=== PATIENT | male | born 1970 ===

== ENCOUNTER 2017-05-28 10:32 | Emergency (ER) | payer SELFPAY ==
--- NOTE | 2017-05-28 11:10 | UC ---
Upper Extremity HPI - HPI Summary HPI Summary: 46 y/o male presents to the urgent care c/o Rt shoulder pain s/p fallin while restraining a resident at work on 05/24/2017. Pt reports he works in a [employer]. When it happened the resident landed on top of him and his shoulder hit the floor. Pain just started on , but yesterday it became worse with movement. Pain is 6/10 at rest and 9/10 with movement. Pt denies numbness and tingling, swelling, SOB, chest pain, abdominal pain, N/V/. He took advil yesterday to alleviate symptoms. - History of Current Complaint Chief Complaint: UCUpperExtremity Stated Complaint: SHOULDER INJURY Time Seen by Provider: 05/28/17 11:07 Hx Obtained From: Patient Onset/Duration: Sudden Onset, Lasting Days - 4 days Severity Initially: Mild Severity Currently: Severe Pain Intensity: 9 Pain Scale Used: 0-10 Numeric Location Of Pain: Is Discrete @ - RT shoulder Character: Sharp Aggravating Factor(s): Movement, Lifting, Abduction Alleviating Factor(s): OTC Meds, Rest Associated Signs And Symptoms: Positive: Negative. Negative: Swelling, Redness , Fever, Numbness/Tingling - Risk Factors Non-Orthopedic Risk Factor: Negative DVT Risk Factors: Negative Septic Arthritis Risk Factor: Negative - Allergies/Home Medications Allergies/Adverse Reactions: Allergies Allergy/AdvReac Type Severity Reaction Status Date / Time No Known Allergies Allergy Verified 05/28/17 10:51 PMH/Surg Hx/FS Hx/Imm Hx Previously Healthy: Yes - Pt denies PMHX - Surgical History Surgical History: Yes Surgery Procedure, Year, and Place: Left ring finger surgery - Family History Known Family History: Positive: Cardiac Disease, Respiratory Disease - asthma - Social History Occupation: Employed Full-time Lives: With Family Alcohol Use: Rare Substance Use Type: None Smoking Status (MU): Never Smoked Tobacco Amount Used/How Often: 1 can q 3 days - Immunization History Most Recent Influenza Vaccination: Not UTD Review of Systems Constitutional: Negative Skin: Negative Eyes: Negative ENT: Negative Respiratory: Negative Cardiovascular: Negative Gastrointestinal: Negative Genitourinary: Negative Motor: Negative Neurovascular: Negative Musculoskeletal: Other: - RT shoudler pain s/p fall Neurological: Negative Psychological: Negative Is Patient Immunocompromised?: No All Other Systems Reviewed And Are Negative: Yes Physical Exam Triage Information Reviewed: Yes Vital Signs: Initial Vital Signs Temp 98.8 F 05/28/17 10:47 Pulse 87 05/28/17 10:47 Resp 16 05/28/17 10:47 BP 165/91 05/28/17 10:47 Pulse Ox 99 05/28/17 10:47 - Additional Comments Vital Signs Reviewed: Yes General: well developed, well nourished mael sitting in the examining table w/o any apparent distress, Eyes: Positive: Conjunctiva Clear - PERRLA, EOMI, fundi grossly normal ENT: Positive: Normal ENT inspection, Hearing grossly normal, Pharynx normal, TMs normal Neck: Positive: Supple, Nontender, No Lymphadenopathy Respiratory: Positive: Chest non-tender, Lungs clear, Normal breath sounds, No respiratory distress Cardiovascular: Positive: RRR, No Murmur, Pulses Normal, Brisk Capillary Refill Abdomen Description: Positive: Nontender, No Organomegaly, Soft. Negative: CVA Tenderness (R), CVA Tenderness (L) Bowel Sounds: Positive: Present Musculoskeletal: Positive: RT shoulder is without obvious asymmetry or deformity when compared to the L shoulder. No surface trauma, ecchymosis, crepitus. No bony deformity or prominence of humeral head. No erythema, warmth. tender to palpation over the clavicle,scapula. and over Acromioclavicular joint or humeral head , Tenderness to palpation of the trapezius, deltoid and acromoclavicular joint, NT over bicipital groove . NT to palpation of the muscles of the sternocleidomastoid, pectoralis, tenderness over biceps/triceps, . Limited ROM due to pain. "empty can and drop arm test unable to perform due to pain. No axillary tenderness or lymphadenopathy. Normal sensation over the deltoid and fingers. Distal motor and neurovascular status is intact. Neurological Exam: Normal Psychological Exam: Normal Skin Exam: Normal Upper Extremity Course/Dx - Course Course Of Treatment: 46 y/o male presents to the urgent care c/o Rt shoulder pain s/p fallin while restraining a resident at work on 05/24/2017. Pt reports he works in a [employer]. When it happened the resident landed on top of him and his shoulder hit the floor. Pain just started on , but yesterday it became worse with movement. Pain is 6/10 at rest and 9/10 with movement. Pt denies numbness and tingling, swelling, SOB, chest pain, abdominal pain, N/V/. He took advil yesterday to alleviate symptoms. Hx obtained.LF shoulder X-ray ordered: Impression: Soft tissue calcification over the humeral head observed, suggestive of calcific tendinopathy. No acute osseous injury observed. Pt given a toradol Im inj at the clinic for pain, Pt tolerated well IM inj. Pain decreae and Pt felt better. Pt's Rx Naproxen PO. Rt shoulder immobilized with shoulder sling for 2-3 days. Advised to f/u with PT referral for further evaluation and Orthopedic referral if not improvement of symptoms. BP elevated, advised monitor BP and decrease salt in diet and f/u with PCP Pt understood and agreed with plan of care. - Differential Dx/Diagnosis Differential Diagnosis/HQI/PQRI: Contusion, Fracture (Closed), Strain, Sprain Provider Diagnoses: 1- Rt acute shoulder pain. 2- Rt shoulder calcific tendonitis. 3- Elevated BP e/o Hx of HTN Discharge - Discharge Plan Condition: Stable Disposition: HOME Prescriptions: Naproxen [Naproxen 500 mg] 500 mg PO Q8H PRN #30 tab PRN Reason: Pain Patient Education Materials: Calcific Tendinitis (ED), Low Sodium Diet (ED) Forms: *Work Release Referrals: [facility] [facility] [place] [facility] [place]] Sammy Oden MD [Medical Doctor] - 1 Week Additional Instructions: 1-Please take medications as directed to alleviate pain and swelling. 2-Please apply ice, keep your shoulder immobilized with the shoulder sling 3- Please f/u with Orthopedic Dr Oden in 1 week if not improvement of symptoms for further evaluation and treatment. 4- F/u Physical [facility] referral for further evaluation and treatment. 5- Your BP is elevated today, please decrease salt in your diet, monitor BP and if it continues to be elevated please f/u with your PCP for further management
[2017-05-28] MEDS ORDERED: Ketorolac INJ* 60 MG/2 ML VIAL IM ONE (11:19)
--- NOTE | 2017-05-28 12:05 | RAD ---
INDICATION: Right shoulder pain and reduced range of motion COMPARISON: None. TECHNIQUE: 4 views of the right shoulder were obtained. FINDINGS: Overlying the superior lateral aspect of the right humerus are 2 ovoid shaped calcifications The adequately corticated bones are in normal alignment. Joint spaces appear maintained. No fracture, dislocation or focal bony abnormality is seen. IMPRESSION: RADIOGRAPHIC FINDINGS COULD BE SEEN IN THE SETTING OF CALCIFIC TENDINITIS INVOLVING THE SUPRASPINATUS TENDON. If the patient's symptoms persist, follow-up imaging is recommended.
[2017-05-28 12:36] VITALS: BP 142/89
== END 2017-05-28 12:51 | disposition home or self-care (01) ==
LOC: UCEAST 10:32
DX: M25.511 Pain in right shoulder (principal); M75.31 Calcific tendinitis of right shoulder; R03.0 Elevated blood-pressure reading, without diagnosis of hypertension; W19.XXXA Unspecified fall, initial encounter; Y93.89 Activity, other specified; Y92.10 Unspecified residential institution as the place of occurrence of the external cause; Y99.0 Civilian activity done for income or pay
CPT/HCPCS: 99203; G0463; J1885